=== PATIENT | female | born 1985 | race Caucasian/White ===

== ENCOUNTER 2016-07-28 18:35 | Emergency (ER) | payer OTHER ==
[~2016-07-28] VITALS: Ht 162.6 cm; Wt 86.9 kg
[~2016-07-28 18:35] MED LIST: ABILIFY; Benadryl PO; COGENTIN1 MG PO; DEPO-PROVE150 MG/1 M IM; DEPO-PROVER150 MG/ML IM; DESYREL100 MG PO; ENDOCET 5-3251 EACH PO; HYDROCORT-PRAM1 EAC1 TP; IBUPROFEN800 MG PO; MELATONIN3 MG PO; NICOTINE PATCH1 EAC2 TD; PERCOCET 5/31 TABLET PO; PROVENTIL17 GM IH; RISPERDAL1 MG PO; TRAZODONE HCL50 MG PO; TRILEPTAL300 MG PO; VALACYCLOVIR500 MG PO; risperDAL PO
[2016-07-28 20:00] VITALS: BP 121/77
== END 2016-07-28 20:05 | disposition home or self-care (01) ==
LOC: EME 18:35
DX: F33.1 Major depressive disorder, recurrent, moderate (principal); F17.200 Nicotine dependence, unspecified, uncomplicated
CPT/HCPCS: 90837; 99281; 99285

== ENCOUNTER 2016-08-04 16:07 | Observation (INO) | payer OTHER ==
[~2016-08-04] VITALS: Ht 162.6 cm; Wt 88.0 kg
[2016-08-04 16:47] LABS: HEMATOCRIT 43.5 % (36.0-46.0); MCH 30.4 PG (29.0-34.0); MCHC 34.5 G/DL (30.0-36.0); MCV 88.2 FL (83-99); MEAN PLAT.VOLUME 11.7 uM^3 (9.5-12.4); PLATELET COUNT 273 K/uL (156-360); RBC DIS.WIDTH-CV 13.8 % (11.8-14.6); RBC DIS.WIDTH-SD 43.6 % (39-53); RED BLOOD COUNT 4.93 M/uL (3.80-5.20); WHITE BLOOD COUNT 11.5 K/uL (4.1-10.2)
[2016-08-04 16:56] LABS: CHLORIDE 107 mEq/L (99-109); SODIUM 140 mEq/L (136-147)
[2016-08-04 16:57] LABS: GLUCOSE 89 mg/dL (70-99)
[2016-08-04 16:59] LABS: ANION GAP 12 MEQ/L (2-14)
[2016-08-04 17:01] LABS: GFR ESTIMATE (CALCULATED) > 59 mL/min/
[2016-08-04 17:02] LABS: UREA NITROGEN (BUN) 14 mg/dL (9-23)
[2016-08-04 17:07] LABS: TROP-I INTERPRETATION NEGATIVE; TROPONIN-I 0.01 ng/mL (0.0-0.30)
[2016-08-04 18:25] LABS: D-DIMER ELISA 0.25 mg/L FEU (< 0.57)
[2016-08-04] MEDS ORDERED: MOTRIN600 MG PO (18:52)
[2016-08-04] MEDS ORDERED: NEURONTIN400 MG PO (18:52)
[2016-08-04] MEDS ORDERED: FLONASE16 G1 BOTH NARES (18:52)
[2016-08-04] MEDS ORDERED: ABILIFY5 MG PO (18:52)
[2016-08-04] MEDS ORDERED: ICY HOT CREAM35.4 G1 TP (18:53)
[2016-08-04] MEDS ORDERED: CLARITIN,ALAVAR10 MG PO (18:53)
[2016-08-04] MEDS ORDERED: SYMBICORT60 INHALAT IH (18:53)
[2016-08-04 19:00] LABS: ADD MIUA? YES; BILIRUBIN NEGATIVE; BLOOD SMALL; COLOR YELLOW ((YELLOW)); GLUCOSE (STRIP) NEGATIVE; KETONES NEGATIVE; LEUKOCYTES NEGATIVE; NITRITE NEGATIVE; PROTEIN (STRIP) NEGATIVE; SPECIFIC GRAVITY 1.026 (1.000-1.030); UROBILINOGEN 0.2 MG/DL (0.2-1.0)
[2016-08-04 19:08] LABS: AMPHETAMINE NEGATIVE (500 ng/mL); BACTERIA RARE /HPF; BARBITURATES NEGATIVE (200 ng/mL); BENZODIAZEPINES NEGATIVE (150 ng/mL); COCAINE NEGATIVE (150 ng/mL); EPITHELIAL CELLS 2+ /HPF; INTERNAL CONTROLS VALID? YES; METHADONE NEGATIVE (200 ng/mL); METHAMPHETAMINE NEGATIVE (500 ng/mL); MUCUS 1+ /LPF; OPIATES (MORPHINE) NEGATIVE (100 ng/mL); OXYCODONE NEGATIVE (100 ng/mL); PHENCYCLIDINE NEGATIVE (25 ng/mL); PROPOXYPHENE NEGATIVE (300 ng/mL); THC CANNABINOIDS PRESUMPTIVE POSITIVE (50 ng/mL); TRICYCLIC ANTIDEPRESSANTS NEGATIVE (300 ng/mL); UCUL ADDED? NO
[2016-08-04 19:09] LABS: ADD MEDTOX COMMENT Y
[2016-08-04 22:01] VITALS: BP 129/61
[2016-08-04 23:14] LABS: TROP-I INTERPRETATION NEGATIVE; TROPONIN-I < 0.01 ng/mL (0.0-0.30)
[2016-08-05 00:10] VITALS: BP 122/68
[2016-08-05 04:07] VITALS: BP 93/61
[2016-08-05 05:30] LABS: HEMATOCRIT 41.8 % (36.0-46.0); MCHC 34.2 G/DL (30.0-36.0); MCV 90.7 FL (83-99); MEAN PLAT.VOLUME 12.1 uM^3 (9.5-12.4); PLATELET COUNT 270 K/uL (156-360); RBC DIS.WIDTH-CV 13.8 % (11.8-14.6); RBC DIS.WIDTH-SD 45.6 % (39-53); RED BLOOD COUNT 4.61 M/uL (3.80-5.20); WHITE BLOOD COUNT 10.2 K/uL (4.1-10.2)
[2016-08-05 05:52] LABS: TROP-I INTERPRETATION NEGATIVE; TROPONIN-I < 0.01 ng/mL (0.0-0.30)
[2016-08-05 05:56] LABS: ALKALINE PHOSPHATASE 75 IU/L (3-129); ANION GAP 7 MEQ/L (2-14); CHLORIDE 105 MEQ/L (99-109); GFR ESTIMATE (CALCULATED) > 59 mL/min/; POTASSIUM 3.7 MEQ/L (3.7-5.4); SAMPLE HEMOLYSIS CHECK 0; SAMPLE ICTERIC CHECK 0; SAMPLE LIPEMIA CHECK 0; SODIUM 138 MEQ/L (136-147); TOTAL BILIRUBIN 0.5 MG/DL (0.0-1.0); UREA NITROGEN (BUN) 13 mg/dL (9-23)
[2016-08-05 06:18] LABS: GLUCOSE 113 mg/dL (70-99)
[2016-08-05 08:20] VITALS: BP 117/78
[2016-08-05] MEDS ORDERED: ASPIR-LOW81 MG PO (10:50)
== END 2016-08-05 11:56 | disposition home or self-care (01) ==
LOC: EME 16:07 → EDOF 19:54 → 5WEST 19:54 → EDOF 19:54 → 5WEST 21:02
PROVIDERS: Internal Medicine; Physician Assistant
DX: R07.89 Other chest pain (principal); R06.02 Shortness of breath; J45.909 Unspecified asthma, uncomplicated; F84.5 Asperger's syndrome; F31.9 Bipolar disorder, unspecified; F90.0 Attention-deficit hyperactivity disorder, predominantly inattentive type; F17.200 Nicotine dependence, unspecified, uncomplicated
CPT/HCPCS: 71020; 80048; 80053; 81003; 84484; 84999; 85027; 85379; 93005; 94640; 94640 76; 94760; 99202; 99281; 99285; C9113; G0378

== ENCOUNTER 2016-09-11 11:46 | Emergency (ER) | payer OTHER ==
[~2016-09-11] VITALS: Ht 162.6 cm; Wt 85.0 kg
[~2016-09-11 11:46] MED LIST changes: +ABILIFY5 MG PO; +ASPIR-LOW81 MG PO; +CLARITIN,ALAVAR10 MG PO; +FLONASE16 G1 BOTH NARES; +ICY HOT CREAM35.4 G1 TP; +MOTRIN600 MG PO; +NEURONTIN400 MG PO; +SYMBICORT60 INHALAT IH
[2016-09-11] MEDS ORDERED: NAPROSYN500 MG PO (12:42)
[2016-09-11 12:51] VITALS: BP 104/70
== END 2016-09-11 12:53 | disposition home or self-care (01) ==
LOC: EME 11:46
DX: M25.462 Effusion, left knee (principal); M25.562 Pain in left knee; Z98.890 Other specified postprocedural states; F17.200 Nicotine dependence, unspecified, uncomplicated
CPT/HCPCS: 73564; 90837; 99281; 99283

== ENCOUNTER 2016-09-11 21:53 | Emergency (ER) | payer OTHER ==
[~2016-09-11] VITALS: Ht 162.6 cm; Wt 86.4 kg
[~2016-09-11 21:53] MED LIST changes: +NAPROSYN500 MG PO
[2016-09-11 22:42] LABS: HEMATOCRIT 39.1 % (36.0-46.0); MCH 30.3 PG (29.0-34.0); MCHC 33.2 G/DL (30.0-36.0); MCV 91.1 FL (83-99); MEAN PLAT.VOLUME 11.2 uM^3 (9.5-12.4); PLATELET COUNT 376 K/uL (156-360); RBC DIS.WIDTH-SD 46.5 % (39-53); RED BLOOD COUNT 4.29 M/uL (3.80-5.20); WHITE BLOOD COUNT 14.5 K/uL (4.1-10.2)
[2016-09-11 22:51] LABS: CHLORIDE 109 mEq/L (99-109); POTASSIUM 3.7 mEq/L (3.7-5.4); SODIUM 140 mEq/L (136-147)
[2016-09-11 22:53] LABS: GLUCOSE 134 mg/dL (70-99)
[2016-09-11 22:55] LABS: ANION GAP 12 MEQ/L (2-14); TOTAL BILIRUBIN 0.3 mg/dL (0.0-1.0)
[2016-09-11 22:57] LABS: ALKALINE PHOSPHATASE 85 IU/L (3-129); GFR ESTIMATE (CALCULATED) > 59 mL/min/
[2016-09-11 22:58] LABS: SERUM ETHYL ALCOHOL < 10 mg/dL; UREA NITROGEN (BUN) 18 mg/dL (9-23)
[2016-09-11 23:00] LABS: SALICYLATE < 5.0 MG/DL (15-30)
[2016-09-12 00:23] VITALS: BP 126/83
== END 2016-09-12 00:26 | disposition home or self-care (01) ==
LOC: EME 21:53
PROVIDERS: Physician Assistant Medical
DX: F32.9 Major depressive disorder, single episode, unspecified (principal); M25.562 Pain in left knee; F84.5 Asperger's syndrome; J45.909 Unspecified asthma, uncomplicated; F17.200 Nicotine dependence, unspecified, uncomplicated
CPT/HCPCS: 80053; 81003; 85027; 99281; 99285; G0480

== ENCOUNTER 2016-09-23 09:58 | Emergency (ER) | payer OTHER ==
[~2016-09-23] VITALS: Ht 162.6 cm; Wt 88.5 kg
[2016-09-23 10:02] VITALS: BP 107/74
[2016-09-23] MEDS ORDERED: TRAMADOL HCL50 MG PO (10:40)
== END 2016-09-23 11:12 | disposition home or self-care (01) ==
LOC: EME 09:58
DX: M25.562 Pain in left knee (principal)
CPT/HCPCS: 99281; 99284

== ENCOUNTER 2017-01-14 18:36 | Emergency (ER) | payer OTHER ==
[~2017-01-14] VITALS: Ht 162.6 cm; Wt 82.8 kg
[~2017-01-14 18:36] MED LIST changes: +TRAMADOL HCL50 MG PO
[2017-01-14] MEDS ORDERED: LIDODERM 5% P1 PATCH TD (19:46)
[2017-01-14] MEDS ORDERED: VALIUM2 MG PO (19:46)
[2017-01-14] MEDS ORDERED: INDOCIN25 MG PO (19:46)
[2017-01-14 20:14] VITALS: BP 115/78
== END 2017-01-14 20:16 | disposition home or self-care (01) ==
LOC: EME 18:36 → RME 18:36
DX: G89.29 Other chronic pain (principal); M54.5 Low back pain; F17.200 Nicotine dependence, unspecified, uncomplicated
CPT/HCPCS: 99281; 99283

== ENCOUNTER 2017-01-28 23:39 | Emergency (ER) | payer OTHER ==
[~2017-01-28] VITALS: Ht 162.6 cm; Wt 81.8 kg
[~2017-01-28 23:39] MED LIST changes: +INDOCIN25 MG PO; +LIDODERM 5% P1 PATCH TD; +VALIUM2 MG PO
[2017-01-29] MEDS ORDERED: NAPROXEN500 MG PO (00:46)
[2017-01-29 01:04] VITALS: BP 121/71
== END 2017-01-29 01:04 | disposition home or self-care (01) ==
LOC: EME 23:39
DX: M25.562 Pain in left knee (principal); G89.29 Other chronic pain; F17.200 Nicotine dependence, unspecified, uncomplicated
CPT/HCPCS: 99281; 99284

== ENCOUNTER 2017-09-15 18:17 | Inpatient (IN) | payer OTHER ==
[~2017-09-15] VITALS: Ht 162.6 cm; Wt 84.1 kg
[~2017-09-15 18:17] MED LIST changes: +NAPROXEN500 MG PO
[2017-09-15 18:59] LABS: HEMOGLOBIN 14.3 G/DL (11.9-15.5); MCH 31.7 PG (29.0-34.0); MCHC 34.9 G/DL (30.0-36.0); MCV 90.9 FL (83-99); RBC DIS.WIDTH-CV 13.4 % (11.8-14.6); RBC DIS.WIDTH-SD 45.1 % (39-53); RED BLOOD COUNT 4.51 M/uL (3.80-5.20); WHITE BLOOD COUNT 9.3 K/uL (4.1-10.2)
[2017-09-15 19:09] LABS: CHLORIDE 108 mEq/L (99-109); POTASSIUM 3.9 mEq/L (3.7-5.4); SODIUM 142 mEq/L (136-147)
[2017-09-15 19:11] LABS: GLUCOSE 87 mg/dL (70-99)
[2017-09-15 19:14] LABS: SERUM ETHYL ALCOHOL < 10 mg/dL
[2017-09-15 19:15] LABS: CREATININE 0.7 mg/dL (0.6-1.3); GFR ESTIMATE (CALCULATED) > 59 mL/min/
[2017-09-15 19:16] LABS: UREA NITROGEN (BUN) 14 mg/dL (9-23)
[2017-09-15 19:41] LABS: HEMATOLOGY COMMENT 1 SN; PLAT.SUFFICIENCY ADEQUATE; PLATELET COUNT 277 K/uL (156-360)
[2017-09-15 21:40] VITALS: BP 124/68
[2017-09-16 08:10] VITALS: BP 130/59
[2017-09-16] MEDS ORDERED: SEROQUEL50 MG PO (11:24)
[2017-09-16 15:47] VITALS: BP 114/64
[2017-09-17 07:53] VITALS: BP 113/57
[2017-09-17 15:41] VITALS: BP 111/67
[2017-09-18 08:10] VITALS: BP 127/74
[2017-09-18 16:19] VITALS: BP 105/65
[2017-09-19 08:08] VITALS: BP 115/58
[2017-09-19] MEDS ORDERED: ARIPIPRAZOLE5 MG PO (10:28)
[2017-09-19] MEDS ORDERED: FLUOXETINE HCL20 MG PO (10:28)
== END 2017-09-19 13:16 | disposition home or self-care (01) | DRG 885 ==
LOC: EME 18:17 → 1WEST 20:21 → EDOF 20:21 → ENRESERV 20:47 → 1WEST 21:36
PROVIDERS: Emergency Medicine Emergency Medical Services
DX: F33.2 Major depressive disorder, recurrent severe without psychotic features (principal); R45.850 Homicidal ideations; R45.851 Suicidal ideations; F70 Mild intellectual disabilities; F84.5 Asperger's syndrome; F41.9 Anxiety disorder, unspecified; F90.9 Attention-deficit hyperactivity disorder, unspecified type; K21.9 Gastro-esophageal reflux disease without esophagitis; G43.909 Migraine, unspecified, not intractable, without status migrainosus; J45.909 Unspecified asthma, uncomplicated; F17.200 Nicotine dependence, unspecified, uncomplicated
CPT/HCPCS: 80048; 85027; 90837; 97150 GO; 97165 GO; 99281; 99285; G0480; Q0177

== ENCOUNTER 2017-09-21 13:27 | Emergency (ER) | payer OTHER ==
[~2017-09-21] VITALS: Ht 162.6 cm; Wt 84.0 kg
[~2017-09-21 13:27] MED LIST changes: +ARIPIPRAZOLE5 MG PO; +FLUOXETINE HCL20 MG PO; +SEROQUEL50 MG PO
[2017-09-21 14:22] LABS: HEMOGLOBIN 14.6 G/DL (11.9-15.5); MCH 31.7 PG (29.0-34.0); MCHC 34.8 G/DL (30.0-36.0); MCV 91.1 FL (83-99); RBC DIS.WIDTH-CV 13.5 % (11.8-14.6); RBC DIS.WIDTH-SD 45.4 % (39-53); RED BLOOD COUNT 4.61 M/uL (3.80-5.20); WHITE BLOOD COUNT 10.1 K/uL (4.1-10.2)
[2017-09-21 14:32] LABS: ALBUMIN 4.1 g/dL (3.2-4.8)
[2017-09-21 14:33] LABS: CHLORIDE 107 mEq/L (99-109); POTASSIUM 3.6 mEq/L (3.7-5.4); SODIUM 140 mEq/L (136-147)
[2017-09-21 14:35] LABS: GLUCOSE 88 mg/dL (70-99); TOTAL PROTEIN 7.1 g/dL (6.4-8.3)
[2017-09-21 14:37] LABS: TOTAL BILIRUBIN 0.2 mg/dL (0.0-1.0)
[2017-09-21 14:38] LABS: ALKALINE PHOSPHATASE 78 IU/L (3-129)
[2017-09-21 14:39] LABS: CREATININE 0.8 mg/dL (0.6-1.3); GFR ESTIMATE (CALCULATED) > 59 mL/min/
[2017-09-21 14:40] LABS: AST (GOT) 13 IU/L (2-34); UREA NITROGEN (BUN) 19 mg/dL (9-23)
[2017-09-21 14:42] LABS: ALT (GPT) 14 IU/L (3-49)
[2017-09-21 14:47] LABS: QUANTITATIVE HCG < 4.0 MIU/ML
[2017-09-21 14:55] LABS: PLAT.SUFFICIENCY ADEQUATE; PLATELET COUNT 238 K/uL (156-360)
[2017-09-21 15:03] LABS: APPEARANCE SL.HAZY ((CLEAR)); BILIRUBIN NEGATIVE; BLOOD NEGATIVE; COLOR YELLOW ((YELLOW)); GLUCOSE (STRIP) NEGATIVE; KETONES NEGATIVE; LEUKOCYTES NEGATIVE; NITRITE NEGATIVE; PROTEIN (STRIP) 30; SPECIFIC GRAVITY 1.031 (1.000-1.030)
[2017-09-21] MEDS ORDERED: FLEXERIL10 MG PO (15:05)
[2017-09-21] MEDS ORDERED: MOTRIN800 MG PO (15:05)
[2017-09-21 15:09] LABS: BACTERIA RARE /HPF; EPITHELIAL CELLS 1+ /HPF; MUCUS 4+ /LPF; RED BLOOD CELLS 0-5 /HPF (0-5); UCUL ADDED? NO; WHITE BLOOD CELLS 0-5 /HPF (0-5)
[2017-09-21 15:30] VITALS: BP 123/72
== END 2017-09-21 16:02 | disposition home or self-care (01) ==
LOC: EME 13:27
PROVIDERS: Nurse Practitioner Family
DX: M54.5 Low back pain (principal); F17.200 Nicotine dependence, unspecified, uncomplicated
CPT/HCPCS: 72100; 80053; 81003; 84702; 85027; 99281; 99283

== ENCOUNTER 2017-10-05 18:03 | Emergency (ER) | payer OTHER ==
[~2017-10-05] VITALS: Ht 162.6 cm; Wt 80.5 kg
[~2017-10-05 18:03] MED LIST changes: +FLEXERIL10 MG PO; +MOTRIN800 MG PO
[2017-10-05 18:35] VITALS: BP 107/67
== END 2017-10-05 21:08 | disposition left against medical advice (07) ==
LOC: EME 18:03
DX: F41.9 Anxiety disorder, unspecified (principal); Z53.21 Procedure and treatment not carried out due to patient leaving prior to being seen by health care provider

== ENCOUNTER 2017-11-26 18:57 | Emergency (ER) | payer OTHER ==
[~2017-11-26] VITALS: Ht 162.6 cm; Wt 78.7 kg
[2017-11-26] MEDS ORDERED: ULTRAM50 MG PO (19:38)
[2017-11-26] MEDS ORDERED: AUGMENTIN875 MG PO (19:38)
[2017-11-26 19:49] VITALS: BP 100/59
== END 2017-11-26 19:50 | disposition home or self-care (01) ==
LOC: EME 18:57
DX: H66.91 Otitis media, unspecified, right ear (principal); Z86.69 Personal history of other diseases of the nervous system and sense organs
CPT/HCPCS: 99281; 99284